=== PATIENT | female | born 1970 | race Caucasian/White ===

== ENCOUNTER 2020-04-19 11:07 | Emergency (ER) | payer OTHER, SELFPAY ==
--- NOTE | 2020-04-19 11:26 | ED.URI ---
HPI - URI/Sore Throat General Chief Complaint: Upper Respiratory Infection Stated Complaint: sinus infection Time Seen by Provider: 04/19/20 11:23 Source: patient and RN notes reviewed Mode of arrival: ambulatory Limitations: no limitations History of Present Illness HPI Narrative: 50-year-old female presents with concern for chronic nasal congestion, sinus pressure, sinus drainage, postnasal drainage, facial pain. Reports symptoms of sinus congestion for several months, reports she had been on amoxicillin however discontinued it because it made her sick to her stomach. She reports she has been using Afrin for several weeks with no relief. She denies fever, cough, shortness of breath, loss of sense of taste or smell. MD elicited complaint: nasal congestion Related Data Allergies Allergy/AdvReac Type Severity Reaction Status Date / Time No Known Allergies Allergy Verified 04/19/20 11:14 Review of Systems Review of Systems: Narrative: CONSTITUTIONAL: Denies malaise, chills, sweats, or fever. EYES: Denies visual changes, redness, or discharge. ENT: Reports rhinorrhea, congestion, sinus pain, otalgia. Denies sore throat. CARDIOVASCULAR: Denies chest pain, palpitations, or edema. RESPIRATORY: Denies cough or dyspnea. GASTROINTESTINAL: Denies abdominal pain, nausea, vomiting, diarrhea SKIN: Denies rash or itching. MUSCULOSKELETAL: Denies myalgia. NEUROLOGIC: Denies headache. All systems reviewed & are unremarkable except as noted in HPI and below PMFSH Social History Social History Gender identity (if verbalized by the patient): Female Comments At time of signature, agree with nursing past medical, surgical, social and family history. There is no relevant family history pertinent to the presenting complaint Exam Narrative: Exam Narrative: GENERAL: Well-appearing, well-nourished, and in no acute distress. HEAD: Normocephalic EYES: PERRLA, conjunctivae clear ENT: Nares clear, turbinates edematous and erythematous, purulent discharge, sinus tenderness. Mucous membranes moist. TM pearly ferraro with dull light reflex bilaterally; no tragal tenderness. Oropharynx not erythematous without lesions. Tonsils not enlarged and without exudate, no drooling, no hoarseness, no trismus, uvula midline. NECK: Supple. No lymphadenopathy CHEST: Clear to auscultation, breath sounds equal. No wheezing, rhonchi, rales, or stridor. No respiratory distress, speaks in full sentences. HEART: Regular rate and rhythm. No murmur heard. SKIN: Warm, dry, no rash. NEURO: Alert and oriented x3. PSYCH: Normal mood and affect Course Course Emergency Course: Patient is aware of diagnosis, understands and agrees to treatment plan. Anticipatory guidance given. Patient agrees to follow-up as directed and is aware of reasons to seek care at the emergency department. Portions of this record may have been created with voice recognition software Vital Signs Vital signs: Reviewed. MDM - URI/Sore Throat MDM Narrative Medical decision making narrative: Differential diagnosis considered: Xiao virus, strep pharyngitis, allergic rhinitis, upper respiratory tract infection, sinusitis, rhinosinusitis, nasopharyngitis. viral pharyngitis, otitis media, otitis externa, pneumonia, bronchitis, viral cough syndrome, viral syndrome, and influenza. Exam findings show no acute concerns or changes; patient is non-toxic appearing and is in no distress. Patient is appropriate for outpatient treatment and follow-up. Critical Care Time Critical Care Time Critical Care Time: No Discharge Plan Discharge Clinical Impression: Acute bacterial sinusitis Patient Disposition: Home, Self-Care Condition: Stable Instructions: Antibiotic Form, Sinusitis (ED) Additional Instructions: Take medications as directed. Discontinue use of Afrin, you may experience rebound congestion. In the future use Afrin for no more than 3 consecutive
== END 2020-04-19 11:37 | disposition home or self-care (01) ==
PROVIDERS: Emergency Provider Nurse Practitioner; PCP Family Medicine
DX: J01.90 Acute sinusitis, unspecified (principal)
CPT/HCPCS: 99213; G0463

== ENCOUNTER → 2020-10-05 15:03 | Outpatient (CLI) | payer OTHER, SELFPAY ==
--- NOTE | ~2020-10-05 | MM_ITS ---
EXAMINATION: MM screening [facility] BI [facility] HISTORY: Screening mammogram TECHNIQUE: Craniocaudal and mediolateral oblique 3-D tomosynthesis images were obtained and synthetic 2-D images were generated. CAD analysis was submitted and interpreted. COMPARISON: 09/14/2017, 10/01/2015, 04/12/2013 BREAST PARENCHYMAL COMPOSITION: There are scattered areas of fibroglandular density. FINDINGS: RIGHT BREAST there is possible architectural distortion the middle third of the central right breast best appreciated 4 cm from the nipple on the craniocaudal view. LEFT BREAST: There is no evidence of suspicious mass, calcification, or architectural distortion to s uggest malignancy. There has been no significant interval change. IMPRESSION: 1. Possible right breast architectural distortion. 2. Additional mammographic views and possible breast ultrasound are recommended. BI-RADS Category 0: Incomplete: Needs additional imaging evaluation. Reviewed, dictated and finalized at location A. IMPRESSION: 1. Possible right breast architectural distortion. 2. Additional mammographic views and possible breast ultrasound are recommended . BI-RADS Category 0: Incomplete: Needs additional imaging evaluation.
== END ==
PROVIDERS: PCP Family Medicine; Visit Provider Obstetrics & Gynecology
DX: Z12.31 Encounter for screening mammogram for malignant neoplasm of breast (principal)
CPT/HCPCS: 77063; 77067

== ENCOUNTER → 2020-11-03 09:21 | Outpatient (CLI) | payer OTHER, SELFPAY ==
--- NOTE | ~2020-11-03 | MM_ITS ---
EXAMINATION: MM diagnostic mammo unilat RT HISTORY: Possible right breast architectural distortion on screening mammogram TECHNIQUE: Additional 3-D tomosynthesis images of the right breast were performed and synthetic 2-D i mages were generated. CAD analysis was submitted and interpreted. COMPARISON: 10/05/2020, 09/14/2017, 10/01/2015 FINDINGS: There is a return to baseline fibroglandular appearance with spot compression of the right breast in the area questioned on screening mammogram. No architectural distortion is identified. IMPRESSION: 1. No mammographic evidence of malignancy. 2. Recommend routine screening mammography in one year. BI-RADS Category 1: Negative Reviewed, dictated and finalized at location A.
== END ==
PROVIDERS: PCP Family Medicine; Visit Provider Obstetrics & Gynecology
DX: R92.8 Other abnormal and inconclusive findings on diagnostic imaging of breast (principal)
CPT/HCPCS: 77065

== ENCOUNTER → 2020-12-17 03:26 | Outpatient (CLI) | payer OTHER, SELFPAY ==
[2020-12-17 20:00] LABS: SARS-CoV-2 RNA PCR Positive
== END ==
PROVIDERS: PCP Family Medicine; Visit Provider Family Medicine
DX: Z20.822 Contact with and (suspected) exposure to COVID-19 (principal); U07.1 COVID-19
CPT/HCPCS: C9803; U0003; U0005

== ENCOUNTER → 2021-12-31 16:38 | Outpatient (CLI) | payer OTHER, SELFPAY ==
--- NOTE | ~2021-12-31 | MM_ITS ---
EXAMINATION: MM screening [facility] HISTORY: Screening mammogram TECHNIQUE: Craniocaudal and mediolateral oblique 3-D tomosynthesis images were obtained and synthetic 2-D images were generated. CAD analysis was submitted and interpreted. COMPARISON: 11/03/2020 diagnostic right mammogram 10/05/2020, 09/10/2017 screening mammogram examinations BREAST PARENCHYMAL COMPOSITION: There are scattered areas of fibroglandular density. FINDINGS: There is no evidence of suspicious mass, calcification, or architectural distortion to sugg est malignancy in either breast. There has been no suspicious interval change. IMPRESSION: 1. No mammographic evidence of malignancy. 2. Recommend routine screening mammography in one year. BI-RADS Category 1: Negative Reviewed, dictated and finalized at location A.
== END ==
PROVIDERS: PCP Family Medicine; Visit Provider Obstetrics & Gynecology
DX: Z12.31 Encounter for screening mammogram for malignant neoplasm of breast (principal)
CPT/HCPCS: 77063; 77067

== ENCOUNTER → 2023-04-12 16:10 | Outpatient (CLI) | payer OTHER, SELFPAY ==
--- NOTE | ~2023-04-12 | MM_ITS ---
EXAMINATION: MM screening [facility] HISTORY: Screening mammogram TECHNIQUE: Craniocaudal and mediolateral oblique 3-D tomosynthesis images were obtained and synthetic 2-D images were generated. CAD analysis was submitted and interpreted. COMPARISON: 12/31/2021 bilateral screening mammogram 11/03/2020 diagnostic right mammogram 10/05/2020, 09/10/2017 bilateral screening mammogram examinations BREAST PARENCHYMAL COMPOSITION: There are scattered areas of fibroglandular density. FINDINGS: There is no evidence of suspicious mass, calcification, or architectural distortion to sugg est malignancy in either breast. There has been no suspicious interval change. IMPRESSION: 1. No mammographic evidence of malignancy. 2. Recommend routine screening mammography in one year. BI-RADS Category 1: Negative Reviewed, dictated and finalized at location A. 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
== END ==
PROVIDERS: PCP Obstetrics & Gynecology; Visit Provider Obstetrics & Gynecology
DX: Z12.31 Encounter for screening mammogram for malignant neoplasm of breast (principal)
CPT/HCPCS: 77063; 77067

== ENCOUNTER 2023-06-12 00:17 | Day surgery (SDC) | payer OTHER, SELFPAY ==
[2023-05-22 11:08] VITALS: BMI 34.4
--- NOTE | 2023-06-09 10:54 | SUR.PREOP ---
Patient called regarding upcoming procedure. Voicemail left regarding appointment times.
--- NOTE | 2023-06-09 13:14 | PM.HPGS ---
History of Present Illness History of Present Illness Consent: Risks, benefits, and alternatives have been discussed and questions answered. Patient agrees to proceed with procedure. Chief complaint: neoplasm screening Narrative: Sallie Yap is a 53 year old female Referred for colon cancer screening. Review of Systems Review of Systems: All systems reviewed & are unremarkable except as noted in HPI and below PMFSH Past Medical History Medical History Abnormal Pap smear of cervix ascus 06/11/2012 Arthritis of both knees Dizziness MARBIN (obstructive sleep apnea) Screening mammogram, encounter for Surgical History Surgical History History of bilateral salpingectomy (10/11/18) Hscope D&C/ Novasure Ablation/ Bilateral Salpingectomy ; Menometrorrhagia dysmenorrhea, undesired fertility History of cholecystectomy (11/22/01) History of dilation and curettage (10/11/18) Hscope D&C/ Novasure Ablation/ Bilateral Salpingectomy ; Menometrorrhagia dysmenorrhea, undesired fertility History of endometrial ablation (10/11/18) Hscope D&C/ Novasure Ablation/ Bilateral Salpingectomy ; Menometrorrhagia dysmenorrhea, undesired fertility Family History Family History Father Hypertension Acute myocardial infarction Mother Myeloma Sibling Skin cancer brother Social History Social History Years smoked: 3 Smoking status: Former smoker Tobacco type: cigarettes Second hand tobacco smoke exposure: No Alcohol intake: current Drinks per week: 3 Alcohol use details: BEERS Substance use: never Substance use type: does not use Lack of Transportation: No Lack of Food: Never True Current Housing: I Have Housing Concerned About Future Housing: No Difficulty Paying Gas/Electric Bills: No Difficulty Paying for Meds: No Currently Unemployed: No Education: Master's Degree or Higher Difficulty w/ Childcare or Family Care: No Living arrangements: with family Additional living arrangements comments: 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/Education: 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 Gender identity (if verbalized by the patient): Female Sexual Orientation (if Verbalized by the Patient): Straight or Heterosexual Spiritual care concerns: No Meds Home Medications and Allergies Home Medications Medication Instructions Recorded Confirmed Type progesterone micronized 200 mg 200 mg PO QHS 10/11/22 06/12/23 History capsule testosterone 50 mg implant pellet 50 mg implant Q3M 10/11/22 06/12/23 History Allergies Allergy/AdvReac Type Severity Reaction Status Date / Time No Known Allergies Allergy Verified 06/12/23 08:00 Exam Resp: Auscultation: clear to auscultation bilaterally Cardio: Rate: regular rate Rhythm: regular rhythm GI: GI Palp: Yes Soft to palpation and No Tenderness to palpation present (GI) Assessment and Plan Assessment and plan (1) Colon cancer screening: Code(s): Z12.11 - Encounter for screening for malignant neoplasm of colon Status: Acute Assessment and Plan: Colonoscopy with possible biopsy or polypectomy or cautery or injection of substances.
[2023-06-12 08:02] VITALS: BP 137/89; PULSE 86; RESP 16; TEMP 36.4; O2SAT 98
--- NOTE | 2023-06-12 08:07 | WPDANESEPPF ---
Anes - Initial Pre Proc Eval Procedure: Operation Date: 06/12/23 09:00 Proposed Procedures p Screening Colonoscopy - Kiko Rojo MD Date/Time: 06/12/23 08:07 Surgeon: Kiko Rojo MD Pre Op Diagnosis: neoplasm screening Patient Data Age: 53 Gender: F Height: 1.65 m Weight: 95.2 kg Last Vital Signs Temp 97.6 F 06/12/23 08:02 Pulse 86 06/12/23 08:02 Resp 16 06/12/23 08:02 BP 137/89 06/12/23 08:02 Pulse Ox 98 06/12/23 08:02 O2 Del Method Room Air 06/12/23 08:02 Allergies Allergy/AdvReac Type Severity Reaction Status Date / Time No Known Allergies Allergy Verified 06/12/23 08:00 Home Medications Medication Instructions Recorded Confirmed Type progesterone micronized 200 mg 200 mg PO QHS 10/11/22 06/12/23 History capsule testosterone 50 mg implant pellet 50 mg implant Q3M 10/11/22 06/12/23 History Patient hx anesthesia problems: none Family hx anesthesia problems: none Results Review: All pre-operative results and documents have been reviewed as part of the pre-operative evaluation. [facility] Past Medical History Medical History (Updated 06/09/23 @ 13:15 by Kiko Rojo MD) Abnormal Pap smear of cervix ascus 06/11/2012 Arthritis of both knees Dizziness MARBIN (obstructive sleep apnea) Screening mammogram, encounter for Surgical History Surgical History History of bilateral salpingectomy (10/11/18) Hscope D&C/ Novasure Ablation/ Bilateral Salpingectomy ; Menometrorrhagia dysmenorrhea, undesired fertility History of cholecystectomy (11/22/01) History of dilation and curettage (10/11/18) Hscope D&C/ Novasure Ablation/ Bilateral Salpingectomy ; Menometrorrhagia dysmenorrhea, undesired fertility History of endometrial ablation (10/11/18) Hscope D&C/ Novasure Ablation/ Bilateral Salpingectomy ; Menometrorrhagia dysmenorrhea, undesired fertility Family History Family History Father Hypertension Acute myocardial infarction Mother Myeloma Sibling Skin cancer brother Social History Social History Years smoked: 3 Smoking status: Former smoker Tobacco type: cigarettes Second hand tobacco smoke exposure: No Alcohol intake: current Drinks per week: 3 Alcohol use details: BEERS Substance use: never Substance use type: does not use Lack of Transportation: No Lack of Food: Never True Current Housing: I Have Housing Concerned About Future Housing: No Difficulty Paying Gas/Electric Bills: No Difficulty Paying for Meds: No Currently Unemployed: No Education: Master's Degree or Higher Difficulty w/ Childcare or Family Care: No Living arrangements: with family Additional living arrangements comments: 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/Education: 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 Gender identity (if verbalized by the patient): Female Sexual Orientation (if Verbalized by the Patient): Straight or Heterosexual Spiritual care concerns: No Anes - Eval Final PreProcedure Day of Procedure 06/12/23 08:07 Patient weight: obese Heart: regular rate and rhythm Lungs: clear to auscultation Airway: Mallampati scale class II Neurological: alert and oriented Last oral intake: >/= 8 hours ASA classification: II Emergent: no Anesthetic plan: proceed Anesthesia type and monitoring: general GIVS and standard monitoring Results Review: All pre-operative results and documents have been reviewed as part of the pre-operative evaluation. Informed Consent: The patient's anesthetic plan and its attendant risks and benefits were discussed with the patient/family/POA. Questions were solicited and answers provided to the satisfaction of the patient/family/POA.
[2023-06-12] MEDS: LACTATED RINGERS 1,000 ML 150 ML IV CONT (08:11)
[2023-06-12 09:09] VITALS: BP 121/81; PULSE 75; RESP 20; O2SAT 96
[2023-06-12 09:19] VITALS: BP 123/75; PULSE 68; RESP 25; O2SAT 97
[2023-06-12 09:29] VITALS: BP 130/83; PULSE 64; RESP 15; O2SAT 100
== END 2023-06-12 09:38 | disposition home or self-care (01) ==
PROVIDERS: PCP Family Medicine; Visit Provider Internal Medicine Gastroenterology
PROC: 0DJD8ZZ Inspection of Lower Intestinal Tract, Via Natural or Artificial Opening Endoscopic (ICD-10-PCS; CPT 45378; principal; 2023-06-12 09:00)
DX: Z12.11 Encounter for screening for malignant neoplasm of colon (principal); D12.8 Benign neoplasm of rectum; K64.8 Other hemorrhoids; G47.33 Obstructive sleep apnea (adult) (pediatric); E66.9 Obesity, unspecified; Z68.34 Body mass index [BMI] 34.0-34.9, adult; Z98.890 Other specified postprocedural states; Z90.49 Acquired absence of other specified parts of digestive tract; Z87.891 Personal history of nicotine dependence; Z82.49 Family history of ischemic heart disease and other diseases of the circulatory system; Z84.0 Family history of diseases of the skin and subcutaneous tissue
CPT/HCPCS: 45381; 45385; 88305; J2704; J7120

== ENCOUNTER 2024-06-17 16:18 | Outpatient (CLI) | payer OTHER, SELFPAY ==
[2024-06-17 17:11] LABS: Albumin Level 4.4 g/dL (3.5-5.1); Estimated Glomerular Filt Rate > 60; Glucose 79 mg/dL (65-110)
--- OUTSIDE RECORDS SUMMARY | 2024-06-17 18:34 | XMS_ITS | Encounter Summary ---
Author Organization [facility] Healthcare Address [address] [place] [address] Care Team Providers Care Sports Attorney Name Role Phone Jesus Ulrich MD Primary Care Provider Kiko Rojo MD Unavailable [phone] Norman Quezada MD Unavailable Encounter Details Date Type Department Care Team (Late st Contact Info) Description 10/25/2023 Documentation [facility] [address] [place] [address] Adeline Cordero, DO [address] [place] [address] Social History Tobacco Use Types Packs/Day Years Used Date Smoking Tobacco: Former Cigarettes Smokeless Tobacco: Never Passive Exposure Comments:qu it 25 years ago AUDIT-C Answer Date Recorded Q1: How often do you have a drink containing alc ohol? 2-4 times a month 10/24/2023 Q2: How many drinks containi ng alcohol do you have on a typical day when you are drinking? 3 or 4 10/24/2023 Q3: How often do you have si x or more drinks on one occasion? Never 10/24/2023 Personal Safety Answer Date Recorded Have you ever been in or are you currently in a harmful physical or emotional relationship or is someone making you feel afraid or unsafe? Denies 10/24/2023 Comments No Sex and Gender Information Value Date Recorded Sex Assigned at Not on file Legal Sex Female 2:04 AM CHEF DE PARTIE Gender Identity Female 06/21/2023 12:25 PM CHEF DE [employer]IE Sexual Orientation Straight 06/21/2023 12 :25 PM CHEF DE [employer]IE documented as of this encounter Plan of Treatment Not on file documented as of this encounter Visit Diagnoses Not on filedocumented in this encounter Care Teams Sports Attorney Relationship Specialty Start Date End Date Jesus Ulrich MD [address] [place] [address] PCP - General Family Medicine 06/21/23 Kiko Rojo MD [address] [place] [address] Referring Physician Gastroenterology 07/25/23 Norman Quezada MD [address] [facility] [id number] [place] [address] Surgeon Colon and Rectal Surgery 07/25/23 documented as of this encounter
--- OUTSIDE RECORDS SUMMARY | 2024-06-17 18:34 | XMS_ITS | Encounter Summary ---
Author Organization [facility] Healthcare Address [address] [place] [address] Care Team Providers Care Portfolio Director Name Role Phone Jesus Ulrich MD Primary Care Provider Kiko Rojo MD Unavailable [phone] Norman Quezada MD Unavailable [phone] Reason for Visit * Reason Onset Date Comments Follow-Up Call 7 Days 10/31/2023 Discharge follow up call placed no answer at this time. Encounter Details Date Type Department Care Team (Late st Contact Info) Description 10/31/2023 Telephone [facility] [address] [place] [address] Netta Holm, RN Follow-Up Call 7 Days (Discharge follow up call placed no answer at this time.) Social History Tobacco Use Types Packs/Day Years [...] on file Legal Sex Female 2:04 AM CLERICAL ADMINISTRATIVE ASSISTANT Gender Identity Female 06/21/2023 12:25 PM CLERICAL ADMINISTRATIVE ASSISTANT Sexual Orientation Straight 06/21/2023 12 :25 PM CLERICAL ADMINISTRATIVE ASSISTANT documented as of this encounter Plan of Treatment Not on file documented as of this encounter Visit Diagnoses Not on filedocumented in this encounter Care Teams Portfolio Director Relationship Specialty Start Date End Date Jesus Ulrich MD [address] [place] [address] PCP - General Family Medicine 06/21/23 Kiko Rojo MD [address] [facility] [address] [place] [address] Referring Physician Gastroenterology 07/25/23 Norman Quezada MD [address] [facility] [phone] [place] [address] Surgeon Colon and Rectal Surgery 07/25/23 documented as of this encounter
--- OUTSIDE RECORDS SUMMARY | 2024-06-17 18:34 | XMS_ITS | Continuity of Care Document ---
Author Organization [facility] Address [address] [place] [address] Phone Care Team Providers Care Refinery Operator Reforming Unit Name Role Phone Fan Leon Unavailable Unavailable Procedures Procedure Date PT Re-evaluation Neuromuscular Re-Ed Manual Therapy Canalith Repositioning Procedure 2017 Neuromuscular Re-Ed Manual Therapy Canalith Repositioning Procedure 2017 Therapeutic Exercise Neuromuscular Re-Ed Manual Therapy Canalith Repositioning Procedure 2017 PT Evaluation Moderate Complexity Therapeutic Exercise Neuromuscular Re-Ed Canalith Repositioning Procedure 2017 Advance Directives Directive Yes / No Effective Date File Name No Information Encounters Encounter Description Practice Location Reason(s) For Visit Diagnoses Date Provider Providers Copied on Encounter [facility], [address], [id number], tel:[phone] [place] Benign paroxysmal vertigo, right earDizziness and giddinessSegment al and somatic dysfunction of cervical region [address] Fan. [address] [facility], [address], [place], [address], [place]. tel: [phone] [facility], [address], [place], [place], [id number], tel:[phone] [place] Benign paroxysmal vertigo, right earDizziness and giddinessSegment al and somatic dysfunction of cervical region May-0 8-201 8 M[address] Fan. [address] [facility], [facility] [address], [place], [facility], . tel: [phone] [place] [address] [facility] [address], [place], [id number], tel:[phone] [place] Benign paroxysmal vertigo, right earDizziness and giddinessSegment al and somatic dysfunction of cervical region May-0 1-201 8 Mujose Chavira. [address] [facility], [facility] [address], [place], [facility], . tel: [phone] [address], [place], [place], [id number], tel:[phone] [place] Benign paroxysmal vertigo, right earDizziness and giddinessSegment al and somatic dysfunction of cervical region Apr-2 7201 [address] Bonilla Chavira. [address] [facility], [facility] [address] [place], [facility], . tel:[phone] Family History Family Member Type Diagnosis Age At Onset No Information Payers Payer name Insurance type Covered green party ID Authornidiaa tipanfilo(s) [facility] CI [id number] Social History Type Description Quantity Date Captured Comments Sex Female Smoking Status No Information Chief Complaint And Reason For Visit No Information Reason For Referral Reason For Referral No Information History Of Present Illness Encounter Date Complaint History Of Prese nt Illness No Information Functional Status Date Functional Assessmen t No Information Instructions Date Instruction Additional Infor mation No Information Assessments Type Assessment Date No Information Patient Care Teams Name Effective Dates (start - stop) Status Members No Information
--- OUTSIDE RECORDS SUMMARY | 2024-06-17 18:34 | XMS_ITS | Referral Summary ---
Author Organization [facility] Address [address] [place] [address] Care Team Providers Care Tree Surgeon Name Role Phone Jesus Ulrich MD Primary Care Provider Kiko Rojo MD Unavailable [phone] Norman Quezada MD Unavailable [phone] Encounters Date Type Department Care Team Description 05/23/2024 Telephone [facility] Gastroenterology [address] [place] [address] Office Building [address], [address] [place] [address] Olivia Vallecillo RN Unsuccessful Phone Call 1 05/02/2024 Telephone [facility] Gastroenterology [address] [place] [address] Office [facility] [address], [address] [place] [address] Olivia Leigh, ALANA Scheduling Testing/Treatment (Flex sig) 03/27/2024 Telephone [facility] Gastroenterology [address] [place] [address] Office Building [address], [address] [place] [address] Olivia Leigh, ALANA GI Preprocedure; Unsuccessful Phone Call 1 from Last 3 Months Allergies No known active allergies Medications progesterone (PROMETRIUM) 200 mg capsule Take 1 capsule (200 mg total) by mouth nightly Active multivitamin tabletIndicatio ns:Vitamin Deficiency Prevention Take 1 tablet by mouth every morning Active cholecalciferol , vitamin D3, 1,000 unit tablet,chewable Indications:Pre vention of Vitamin D Deficiency Take 1 tablet/chew tab by mouth every morning Active ascorbic acid/vit B12/zinc (VITAMIN C-VITAMIN I84-YBPV ORAL) Take 1 tablet by mouth every morning Active polyethylene glycol (MIRALAX) 17 gram packetIndicatio ns:constipation Take 1 packet (17 g total) by mouth daily as needed for constipation 30 packet Active Active Problems Problem Noted Date Diagnosed Date S/P colonoscopy with polypectomy 10/24/2023 Benign colon polyp 10/02/2023 Tubular adenoma of colon 10/02/2023 Rectal polyp 08/04/2023 Sessile colonic polyp 07/25/2023 Social History Tobacco Use Types Packs/Day Years Used Date Smoking Tobacco: Former Cigarettes Smokeless Tobacco: Never Tobacco Cessation:Counseling Given: Not Answered Passive Exposure Comments:quit 25 years ago AUDIT-C Answer Date Recorded [...] on file Legal Sex Female 2:04 AM PIER WORKER Gender Identity Female 06/21/2023 12:25 PM PIER WORKER Sexual Orientation Straight 06/21/2023 12 :25 PM PIER WORKER Last Filed Vital Signs Vital Sign Reading Time Taken Comments Blood Pressure 156/93 10/25/2023 10:40 AM CDT Pulse 76 10/25/2023 10:40 AM CDT Temperature 36.5 C (97.7 F) 10/25/2023 4:10 AM CDT Respiratory Rate 16 10/25/2023 10:40 AM CDT Oxygen Saturation 97% 10/25/2023 10:40 AM CDT Inhaled Oxygen Concentration - - Weight 96 kg (211 lb 9.6 oz) 10/25/2023 4:10 AM CDT Height 165.1 cm (5' 5 ) 10/24/2023 2:40 PM CDT Body Mass Index 35.21 10/24/2023 2:40 PM CDT Plan of Treatment Not on file Insurance CHOICE PLUS [id number] CHOICE PLUS Advance Directives For more information, please contact: [phone] * Full Code (Latest Code Status on File) Date Activated Date Inactivated Comments 10/24/2023 2:52 PM 10/25/2023 6:26 PM * Full Code Date Activated Date Inactivated Comments 10/24/2023 7:36 AM 10/24/2023 2:52 PM Care Teams Tree Surgeon Relationship Specialty Start Date End Date Jesus Ulrich MD [address] [place] [address] PCP - General Family Medicine 06/21/23 Kiko Rojo MD [address] [place] [address] Referring Physician Gastroenterology 07/25/23 Norman Quezada MD [phone] [place] [address] Surgeon Colon and Rectal Surgery 07/25/23
--- OUTSIDE RECORDS SUMMARY | 2024-06-17 18:34 | XMS_ITS | Clinical Summary ---
Author Organization [facility] Address [facility] [place] [address] Care Team Providers Care Cost Control Analyst Name Role Phone Jesus Ulrich MD Primary Care Provider Kiko Rojo MD Unavailable [phone] Norman Quezada MD Unavailable [phone] Allergies No known active allergies Medications progesterone (PROMETRIUM) 200 mg capsule Take 1 capsule (200 mg total) by mouth nightly Active multivitamin tabletIndicatio ns:Vitamin Deficiency Prevention Take 1 tablet by mouth every morning Active cholecalciferol , vitamin D3, 1,000 unit tablet,chewable Indications:Pre vention of Vitamin D Deficiency Take 1 tablet/chew tab by mouth every morning Active ascorbic acid/vit B12/zinc (VITAMIN C-VITAMIN W35-RWXT ORAL) Take 1 tablet by mouth every morning Active polyethylene glycol (MIRALAX) 17 gram packetIndicatio ns:constipation Take 1 packet (17 g total) by mouth daily as needed for constipation 30 packet Active Active Problems Problem Noted Date Diagnosed Date S/P colonoscopy with polypectomy 10/24/2023 Benign colon polyp 10/02/2023 Tubular adenoma of colon 10/02/2023 Rectal polyp 08/04/2023 Sessile colonic polyp 07/25/2023 Encounters Date Type Department Care Team Description 05/23/2024 Telephone [facility] Gastroenterology [facility] Office Building 4, [address] [place] [address] Olivia Vallecillo RN Unsuccessful Phone Call 1 05/02/2024 Telephone [facility] Gastroenterology [address] [place] [address] Medical Office Building 4, [address] [place] [address] Olivia Leigh RN Scheduling Testing/Treatment (Flex sig) 03/27/2024 Telephone [facility] Gastroenterology [address] [place] [address] Office Building [address], [address] [place] [address] Olivia Leigh RN GI Preprocedure; Unsuccessful Phone Call 1 from Last 3 Months Surgical History Surgery Date Site/Laterality Comments ENDOMETRIAL ABLATION 04/24/2017 - 04/23/2018 CHOLECYSTECTOMY 04/24/2003 - 04/23/2004 Family History Medical History Relation Name Comments Heart attack Father Heart attack Maternal Grandfather Relation Name Status Comments Father Maternal Grandfather Social History Tobacco Use Types Packs/Day Years [...] on file Legal Sex Female 2:04 AM SUPERVISOR ASSEMBLY AND PACKING Gender Identity Female 06/21/2023 12:25 PM SUPERVISOR ASSEMBLY AND PACKING Sexual Orientation Straight 06/21/2023 12 :25 PM SUPERVISOR ASSEMBLY AND PACKING Obstetrics History Last Filed Vital Signs Vital Sign Reading [...] 10/24/2023 2:40 PM CDT Plan of Treatment Health Maintenance Due Date Last Done Comments Breast Cancer Screening-Mammogram 1972 Cervical Cancer Screening 1972 Colon Cancer Screening-Colonoscopy 1972 Depression Screening 1972 Hepatitis C Screening 1972 DTaP/Tdap/Td Vaccine (1 - Tdap) 1983 Hepatitis B Screening 1990 Regular Well Visit/Exam 18-64 1990 Zoster Vaccine (1 of 2) 2022 Covid-19 Vaccine ( season) 2023 04/03/2022, 03/23/2021, 07/11/2020, Additional history exists Influenza Vaccine (#1) 2023 2, 03/23/2021, 03/09/2020 Pneumococcal vaccine <65 Aged Out No longer eligible based on patient's age to complete this topic Insurance [facility] CHOICE PLUS [facility] HMO/PPO Address: [facility] [address] [place] [address] [place] [address] [facility] CHOICE PLUS [facility] H[facility]/PPO Address: [facility] [id number] [place] [address] Advance Directives For more information, please contact: [phone] * Full Code (Latest Code Status on File) Date Activated Date Inactivated Comments 10/24/2023 2:52 PM 10/25/2023 6:26 PM * Full Code Date Activated Date Inactivated Comments 10/24/2023 7:36 AM 10/24/2023 2:52 PM Care Teams Cost Control Analyst Relationship Specialty Start Date End Date Jesus Ulrich MD [address] [place] [id number] PCP - General Family Medicine 06/21/23 Kiko Rojo MD [address] [place] [address] Referring Physician Gastroenterology 07/25/23 Norman Quezada MD [phone] [place] [address] Surgeon Colon and Rectal Surgery 07/25/23
== END 2024-06-17 16:19 | disposition home or self-care (01) ==
LOC: ANHLAB 16:19
PROVIDERS: PCP Family Medicine; Visit Provider Orthopaedic Surgery
DX: M17.0 Bilateral primary osteoarthritis of knee (principal)
CPT/HCPCS: 36415; 82040; 82565; 82947

== ENCOUNTER 2024-06-24 12:32 | Outpatient (CLI) | payer OTHER, SELFPAY | END 2024-06-24 12:33 | disposition home or self-care (01) | LOC: ANHCARD 12:35 | PROVIDERS: Visit Provider Orthopaedic Surgery | DX: R94.31 Abnormal electrocardiogram [ECG] [EKG] (principal); M17.0 Bilateral primary osteoarthritis of knee | CPT/HCPCS: 93005 ==

== ENCOUNTER 2024-08-16 13:53 | Outpatient (CLI) | payer OTHER, SELFPAY ==
--- OUTSIDE RECORDS SUMMARY | 2024-08-16 14:00 | XMS_ITS | Clinical Summary ---
Author Organization [facility] Address [facility] [place] [address] Care Team Providers Care Client Business Manager Name Role Phone Jesus Ulrich MD Primary Care Provider Kiko Rojo MD Unavailable [phone] Norman Quezada MD Unavailable [phone] Allergies No known active allergies Medications progesterone (PROMETRIUM) 200 mg capsule Take 1 capsule (200 mg total) by mouth nightly Active multivitamin tabletIndicatio ns:Vitamin Deficiency Prevention Take 1 tablet by mouth every morning Active cholecalciferol , vitamin D3, 1,000 unit tablet,chewable Indications:Pre vention of Vitamin D Deficiency Take 1 tablet/chew tab by mouth every morning Active ascorbic acid/vit B12/zinc (VITAMIN C-VITAMIN O98-MWHQ ORAL) Take 1 tablet by mouth every [...] Type Department Care Team Description 05/23/2024 Telephone [facility] Gastroenterology [facility] Medical Office Building 4, [address] [place] [address] Olivia Vallecillo RN Unsuccessful Phone Call 1 from Last 3 [...] on file Legal Sex Female 2:04 AM LIFE ENRICHMENT SPECIALIST Gender Identity Female 06/21/2023 12:25 PM LIFE ENRICHMENT SPECIALIST Sexual Orientation Straight 06/21/2023 12 :25 PM LIFE ENRICHMENT SPECIALIST Obstetrics History Last Filed Vital Signs Vital [...] (1 of 2) 2022 Covid-19 Vaccine ( - season) 2023 04/03/2022, 03/23/2021, 07/11/2020, Additional history exists Influenza Vaccine (Season Ended) 2024 04/03/2022, 03/23/2021, 03/09/2020 Pneumococcal vaccine <65 Aged Out No longer eligible based on patient's age to complete this topic Insurance [facility] CHOICE PLUS [facility] H[facility]/PPO Address: [id number] [place] [address] [facility] CHOICE PLUS [facility] H[facility]/PPO Address: [id number] [place] [address] Advance Directives For more information, please contact: [phone] * Full Code (Latest Code Status on File) Date Activated Date Inactivated Comments 10/24/2023 2:52 PM 10/25/2023 6:26 PM * Full Code Date Activated Date Inactivated Comments 10/24/2023 7:36 AM 10/24/2023 2:52 PM Care Teams Client Business Manager Relationship Specialty Start Date End Date Jesus Ulrich MD [address] [facility] [address] [place] [address] PCP - General Family Medicine 06/21/23 Kiko Rojo MD [address] [facility] [address] [place] [address] Referring Physician Gastroenterology 07/25/23 Norman Quezada MD [phone] [place] [address] Surgeon Colon and Rectal Surgery 07/25/23
--- OUTSIDE RECORDS SUMMARY | 2024-08-16 14:00 | XMS_ITS | Referral Summary ---
Author Organization [facility] Address [facility] [place] [address] Care Team Providers Care Machine Pie Maker Name Role Phone Jesus Ulrich MD Primary Care Provider Kiko Rojo MD Unavailable Norman Quezada MD Unavailable [phone] Encounters Date Type Department Care Team Description 05/23/2024 Telephone [facility] Gastroenterology [address] [place] [address] Medical Office Building 4, [address] [place] [address] Olivia Vallecillo, ALANA Unsuccessful Phone Call 1 from Last 3 [...] morning Active ascorbic acid/vit B12/zinc (VITAMIN C-VITAMIN H48-KFOF ORAL) Take 1 tablet by mouth every [...] on file Legal Sex Female 2:04 AM VIDEO MACHINES MECHANIC Gender Identity Female 06/21/2023 12:25 PM VIDEO MACHINES MECHANIC Sexual Orientation Straight 06/21/2023 12 :25 PM VIDEO MACHINES MECHANIC Last Filed Vital Signs Vital Sign Reading [...] Plan of Treatment Not on file Insurance [facility] CHOICE PLUS [id number] CHOICE PLUS Advance Directives For more information, please contact: [phone] * Full Code (Latest Code Status on File) Date Activated Date Inactivated Comments 10/24/2023 2:52 PM 10/25/2023 6:26 PM * Full Code Date Activated Date Inactivated Comments 10/24/2023 7:36 AM 10/24/2023 2:52 PM Care Teams Machine Pie Maker Relationship Specialty Start Date End Date Jesus Ulrich MD [address] [facility] [address] [place] [address] PCP - General Family Medicine 06/21/23 Kiko Rojo MD [address] [place] [address] Referring Physician Gastroenterology 07/25/23 Norman Quezada MD [phone] [place] [address] Surgeon Colon and Rectal Surgery 07/25/23
--- OUTSIDE RECORDS SUMMARY | 2024-08-16 14:00 | XMS_ITS | Encounter Summary ---
Author Organization [facility] Healthcare Address [address] [place] [address] Care Team Providers Care Billboard Erector Helper Name Role Phone Jesus Ulrich MD Primary Care Provider Kiko Rojo MD Unavailable [phone] Norman Quezada MD Unavailable [phone] Encounter Details Date Type Department Care Team (Late st Contact Info) Description 10/25/2023 Documentation [facility] 1 [place] [address] Adeline Cordero, DO [address] [place] [address] Social History Tobacco Use Types Packs/Day Years [...] on file Legal Sex Female 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 AM 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 Gender Identity Female 06/21/2023 12:25 PM SALES 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 Sexual Orientation Straight 06/21/2023 12 :25 PM SALES 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 documented as of this encounter Plan of Treatment Not on file documented as of this encounter Visit Diagnoses Not on filedocumented in this encounter Care Teams Billboard Erector Helper Relationship Specialty Start Date End Date Jesus Ulrich MD [address] [place] [address] PCP - General Family Medicine 06/21/23 Kiko Rojo MD [address] [place] [address] Referring Physician Gastroenterology 07/25/23 Norman Quezada MD [address] [facility] [phone] [place] [address] Surgeon Colon and Rectal Surgery 07/25/23 documented as of this encounter
--- OUTSIDE RECORDS SUMMARY | 2024-08-16 14:00 | XMS_ITS | Encounter Summary ---
Author Organization [facility] Healthcare Address [address] [place] [address] Care Team Providers Care Clinical Care Manager Name Role Phone Jesus Ulrich MD Primary Care Provider Kiko Rojo MD Unavailable [phone] Norman Quezada MD Unavailable [phone] Reason for Visit * Reason Onset Date Comments Follow-Up Call 7 Days 10/31/2023 Discharge follow up call placed no answer at this time. Encounter Details Date Type Department Care Team (Late st Contact Info) Description 10/31/2023 Telephone [facility] 1 [place] [address] Netta Holm, RN Follow-Up Call [...] on file Legal Sex Female 2:04 AM COTTON ACREAGE MEASURER Gender Identity Female 06/21/2023 12:25 PM COTTON ACREAGE MEASURER Sexual Orientation Straight 06/21/2023 12 :25 PM COTTON ACREAGE MEASURER documented as of this encounter Plan of Treatment Not on file documented as of this encounter Visit Diagnoses Not on filedocumented in this encounter Care Teams Clinical Care Manager Relationship Specialty Start Date End Date Jesus Ulrich MD [address] [place] [address] PCP - General Family Medicine 06/21/23 Kiko Rojo MD [address] [facility] [address] [place] [address] Referring Physician Gastroenterology 07/25/23 Norman Quezada MD [address] [facility] [phone] [place] [address] Surgeon Colon and Rectal Surgery 07/25/23 documented as of this encounter
[2024-08-16 15:20] LABS: Basophils Absolute Auto 0.1 K/mm3 (0.0-0.1); Basophils Percent Auto 1.2 % (0.2-1.2); Eosinophils Absolute Auto 0.3 K/mm3 (0-0.3); Eosinophils Percent Auto 2.9 % (0-4.4); Hematocrit 40.2 % (37.0-47.0); Hemoglobin 13.2 g/dL (12.0-15.0); Immature Granulocyte Absolute 0.03 K/mm3 (0.00-0.031); Immature Granulocyte Percent A 0.3 % (0-0.5); Lymphocytes Absolute Auto 3.37 K/mm3 (0.9-3.2); Lymphocytes Percent Auto 35.5 % (18.3-44.2); Mean Corpuscular HGB Conc 32.8 g/dl (32-36); Mean Corpuscular Hemoglobin 27.8 pg (26-34); Mean Corpuscular Volume 84.8 fl (80-100); Mean Platelet Volume 9.4 fl (7.4-10.4); Monocytes Absolute Auto 0.6 K/mm3 (0.1-0.6); Monocytes Percent Auto 6.1 % (2.6-8.5); Neutrophils Absolute Auto 5.1 K/mm3 (1.3-6.7); Platelet Count Result 301 k/mm3 (150-375); Red Blood Count 4.74 M/mm3 (4.2-5.4); Red Cell Distribution Width 12.6 % (11.5-14.5); White Blood Count 9.5 K/mm3 (4.5-10.0)
[2024-08-16 15:32] LABS: Urine Cotinine NEGATIVE
[2024-08-16 15:36] LABS: Albumin Level 4.5 g/dL (3.5-5.1); Estimated Glomerular Filt Rate > 60; Glucose 107 mg/dL (65-110)
[2024-08-16 15:59] LABS: Hemoglobin A1C 5.4 % (<5.7)
[2024-08-16 16:30] LABS: MRSA (PCR) NOT DETECTED (NOT DETECTE)
== END 2024-08-16 13:54 | disposition home or self-care (01) ==
LOC: ANHSURGERY 13:55
PROVIDERS: PCP Family Medicine; Visit Provider Orthopaedic Surgery
DX: M17.11 Unilateral primary osteoarthritis, right knee (principal); Z01.812 Encounter for preprocedural laboratory examination
CPT/HCPCS: 80307; 82040; 82565; 82947; 83036; 85025; 87641

== ENCOUNTER 2024-09-10 00:18 | Day surgery (SDC) | payer OTHER, SELFPAY ==
--- NOTE | 2024-08-16 14:08 | PC.NURSE ---
Report to the Outpatient Waiting Room, entrance under the green pavilion located off [facility], at time __8:30am on date ___09/10/24____. Planned Procedure Time: __10:30am . Time changes happen often and if your time is changed the preop area will call you the afternoon before. - You and your visitor will be asked to self-screen and do not enter if you have any COVID symptoms. Please call surgeon if you need to reschedule. - A mask is optional within the hospital at this time. Patients may have clear liquids (water, carbonated beverages, clear teas, apple juice) until 3 hours prior to surgery (7:30am) with a maximum of 20 ounces. - No food from midnight until time of surgery and no smoking, or chewing tobacco (or any form of nicotine). No chewing gum, candy or mints. Take only the following medications with a SIP of water on the morning of surgery: ____THYROID MEDICATION DO NOT STOP ANY OF YOUR OTHER PRESCRIPTION MEDICATIONS PRIOR TO SURGERY EXCEPT THE FOLLOWING Hold all vitamins and supplements for 3 days per anesthesiologist.-LAST DOSE 09/06/24 HOLD ALL NSAIDS(IBUPROFEN) 7 DAYS PRE-OP PER DR PERSON- LAST DOSE 09/02/24 Please no make-up, nail slovenian, hairspray, perfume, deodorant, or body powder the day of surgery. No jewelry (including any body piercings) or valuables the day of surgery, leave them at home. Please take a shower or bath the night before, or the morning of, surgery with an antibacterial soap. Wear comfortable, loose fitting clothing. - Jewelry must be removed prior to entering the operating room. Rings and piercings that are not removed may be cut off. - The hospital will not accept responsibility for valuables. - Please leave all valuables, including medications, at home the day of surgery. If you are going home after surgery, a licensed sprinkler truck driver must drive you home. - NO public transportation without another adult if you receive anesthesia. - We recommend that an adult stay with you for 24 hours following discharge. - We also recommend that you do not drive, make important decision, drink alcoholic beverages, or take any drugs that were not prescribed by your health care provider for at least 24 hours after your discharge time. Follow any additional instructions given to you from your surgeon. Telephone instructions given to ____patient & husband and asked if any additional questions and then verbalized understanding. Patient advised to call surgeon office or pre surgery nurse liaison [phone] if any additional questions.
[2024-08-16 14:20] VITALS: BP 148/78; PULSE 81; RESP 16; TEMP 36.8; O2SAT 96; BMI 36.6
[2024-09-10] VITALS (14 sets, daily range): BP systolic 108–152; BP diastolic 61–96; PULSE 61–89; RESP 12–19; TEMP 36.3; O2SAT 96–100; BMI 36.4
--- NOTE | ~2024-09-10 | XR_ITS ---
EXAMINATION: [id number] DATE: 09/10/2024 11:56 INDICATION: Postoperative evaluation following right knee arthroplasty. TECHNIQUE: Anteroposterior view of the right knee was obtained. COMPARISON: 04/19/2024 FINDINGS: Right total knee arthroplasty which appears well seated on the single provided frontal projection. Th ere is 8 degree varus angulation of the tibia relative to the axis of the tibial tray. No fractures i dentified. Expected postoperative subcutaneous gas. IMPRESSION: 1. Right total knee arthroplasty, negative for postoperative purposes. Reviewed, dictated and finalized at location A.
--- OUTSIDE RECORDS SUMMARY | 2024-09-10 00:20 | XMS_ITS | Encounter Summary ---
Author Organization [facility] Healthcare Address [address] [place] [address] Care Team Providers Care Contract Post Office Clerk Name Role Phone Jesus Ulrich MD Primary Care Provider Kiko Rojo MD Unavailable [phone] Norman Quezada MD Unavailable Encounter Details Date Type Department Care Team (Late st Contact Info) Description 10/25/2023 Documentation [facility] 1 [place] [address] Adeline Cordero, DO [address] [place] [address] Social History Tobacco Use Types Packs/Day Years [...] on file Legal Sex Female 2:04 AM CLINICAL DATA ASSOCIATE Gender Identity Female 06/21/2023 12:25 PM CLINICAL DATA ASSOCIATE Sexual Orientation Straight 06/21/2023 12 :25 PM CLINICAL DATA ASSOCIATE documented as of this encounter Plan of Treatment Not on file documented as of this encounter Visit Diagnoses Not on filedocumented in this encounter Care Teams Contract Post Office Clerk Relationship Specialty Start Date End Date Jesus Ulrich MD [address] [place] [address] PCP - General Family Medicine 06/21/23 Kiko Rojo MD [address] [place] [address] Referring Physician Gastroenterology 07/25/23 Norman Quezada MD [address] [facility] [phone] [place] [address] Surgeon Colon and Rectal Surgery 07/25/23 documented as of this encounter
--- OUTSIDE RECORDS SUMMARY | 2024-09-10 00:20 | XMS_ITS | Encounter Summary ---
Author Organization [facility] Healthcare Address [address] [place] [address] Care Team Providers Care Yarn Twister Name Role Phone Jesus Ulrich MD Primary Care Provider Kiko Rojo MD Unavailable [phone] Norman Quezada MD Unavailable [phone] Reason for Visit * Reason Onset Date Comments Follow-Up Call 7 Days 10/31/2023 Discharge follow up call placed no answer at this time. Encounter Details Date Type Department Care Team (Late st Contact Info) Description 10/31/2023 Telephone [facility] 1 [place] [address] Netta Holm, RN Follow-Up Call [...] on file Legal Sex Female 2:04 AM CULTURAL ANTHROPOLOGY PROFESSOR Gender Identity Female 06/21/2023 12:25 PM CULTURAL ANTHROPOLOGY PROFESSOR Sexual Orientation Straight 06/21/2023 12 :25 PM CULTURAL ANTHROPOLOGY PROFESSOR documented as of this encounter Plan of Treatment Not on file documented as of this encounter Visit Diagnoses Not on filedocumented in this encounter Care Teams Yarn Twister Relationship Specialty Start Date End Date Jesus Ulrich MD [address] [place] [address] PCP - General Family Medicine 06/21/23 Kiko Rojo MD [address] [facility] [address] [place] [address] Referring Physician Gastroenterology 07/25/23 Norman Quezada MD [address] [facility] [phone] [place] [address] Surgeon Colon and Rectal Surgery 07/25/23 documented as of this encounter
--- OUTSIDE RECORDS SUMMARY | 2024-09-10 00:20 | XMS_ITS | Clinical Summary ---
Author Organization [facility] Address [facility] [place] [address] Care Team Providers Care Bpm Developer Name Role Phone Jesus Ulrich MD Primary Care Provider Kiko Rojo MD Unavailable [phone] Norman Quezada MD Unavailable [phone] Allergies No known active allergies Medications progesterone (PROMETRIUM) 200 mg capsule Take 1 capsule (200 mg total) by mouth nightly Active multivitamin tabletIndicatio ns:Vitamin Deficiency Prevention Take 1 tablet by mouth every morning Active cholecalciferol , vitamin D3, 1,000 unit tablet,chewable Indications:Pre vention of Vitamin D Deficiency Take 1 tablet/chew tab by mouth every morning Active ascorbic acid/vit B12/zinc (VITAMIN C-VITAMIN E23-ZSBF ORAL) Take 1 tablet by mouth every morning Active polyethylene glycol (MIRALAX) 17 gram packetIndicatio ns:constipation Take 1 packet (17 g total) by mouth daily as needed for constipation 30 packet Active Active Problems Problem Noted Date Diagnosed Date S/P colonoscopy with polypectomy 10/24/2023 Benign colon polyp 10/02/2023 Tubular adenoma of colon 10/02/2023 Rectal polyp 08/04/2023 Sessile colonic polyp 07/25/2023 Surgical History Surgery Date Site/Laterality Comments ENDOMETRIAL [...] on file Legal Sex Female 2:04 AM SPINNING FRAME FIXER Gender Identity Female 06/21/2023 12:25 PM SPINNING FRAME FIXER Sexual Orientation Straight 06/21/2023 12 :25 PM SPINNING FRAME FIXER Obstetrics History Last Filed Vital Signs Vital [...] patient's age to complete this topic Insurance [facility] CHOICE PLUS Member Subscriber Plan / Payer (Ef fective 2023-Present) Name:Sallie Yap Relation to Subscriber:Self Name:Sallie Yap Payer ID:[id number] (NA) Type:[facility] HMO/PPO Address: [place] [id number] Advance Directives For more information, please contact: [phone] * Full Code (Latest Code Status on File) Date Activated Date Inactivated Comments 10/24/2023 2:52 PM 10/25/2023 6:26 PM * Full Code Date Activated Date Inactivated Comments 10/24/2023 7:36 AM 10/24/2023 2:52 PM Care Teams Bpm Developer Relationship Specialty Start Date End Date Jesus Ulrich MD [address] [place] [address] PCP - General Family Medicine 06/21/23 Kiko Rojo MD [address] [facility] [address] [place] [address] Referring Physician Gastroenterology 07/25/23 Norman Quezada MD [phone] [place] [address] Surgeon Colon and Rectal Surgery 07/25/23
--- OUTSIDE RECORDS SUMMARY | 2024-09-10 00:20 | XMS_ITS | Referral Summary ---
Author Organization [facility] Address Formerly [facility] [place] [address] Care Team Providers Care Curb Setter Name Role Phone Jesus Ulrich MD Primary Care Provider Kiko Rojo MD Unavailable [phone] Norman Quezada MD Unavailable [phone] Allergies No known active allergies Medications progesterone (PROMETRIUM) 200 mg capsule Take 1 capsule (200 mg total) by mouth nightly Active multivitamin tabletIndicatio ns:Vitamin Deficiency Prevention Take 1 tablet by mouth every morning Active cholecalciferol , vitamin D3, 1,000 unit tablet,chewable Indications:Pre vention of Vitamin D Deficiency Take 1 tablet/chew tab by mouth every morning Active ascorbic acid/vit B12/zinc (VITAMIN C-VITAMIN S73-TUNH ORAL) Take 1 tablet by mouth every [...] on file Legal Sex Female 2:04 AM DIRECTOR OF [employer]AL SAL[employer] Gender Identity Female 06/21/2023 12:25 PM DIRECTOR OF [employer] Sexual Orientation Straight 06/21/2023 12 :25 PM DIRECTOR OF [employer] Last Filed Vital Signs Vital Sign Reading [...] Plan of Treatment Not on file Insurance [facility] CHO[facility] PLUS [facility] PLUS Advance Directives For more information, please contact: [phone] * Full Code (Latest Code Status on File) Date Activated Date Inactivated Comments 10/24/2023 2:52 PM 10/25/2023 6:26 PM * Full Code Date Activated Date Inactivated Comments 10/24/2023 7:36 AM 10/24/2023 2:52 PM Care Teams Curb Setter Relationship Specialty Start Date End Date Jesus Ulrich MD [address] [facility] [address] [place] [address] PCP - General Family Medicine 06/21/23 Kiko Rojo MD [address] [facility] [address] [place] [address] Referring Physician Gastroenterology 07/25/23 Norman Quezada MD [address] [facility] [phone] [place] [address] Surgeon Colon and Rectal Surgery 07/25/23
--- OUTSIDE RECORDS SUMMARY | 2024-09-10 00:20 | XMS_ITS | Continuity of Care Document ---
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 [address] [facility], [address], [place], [address], [place]. tel: [phone] [facility], [address] [facility] [address], [place], [place], [id number], tel:[phone] [place] Benign paroxysmal vertigo, right earDizziness and giddinessSegment al and somatic dysfunction of cervical region May-0 8-201 8 Muehl Fan. [address] [facility], [facility] [address], [place], [facility], . tel: [phone] [place] [address] [facility] [address], [place], [id number], tel:[phone] [place] Benign paroxysmal vertigo, right earDizziness and giddinessSegment al and somatic dysfunction of cervical region May-0 1-201 8 Mujose Chavira. [address] [facility], [facility] [address], [place], [facility], . tel: [phone] [address], [place], [place], [id number], tel:[phone] [place] Benign paroxysmal vertigo, right earDizziness and giddinessSegment al and somatic dysfunction of cervical region Apr-2 7201 [address] Bonilla Chavira. [address] [facility], [facility] [address], [place], [facility], . tel:[phone] Family History Family Member Type Diagnosis Age At Onset No Information Payers Payer name Insurance type Covered democrat ID Authornidiaa tipanfilo(s) [facility] CI [id number] Social History Type Description Quantity Date Captured [...]
--- NOTE | 2024-09-10 07:16 | WPDHPUPDATE1 ---
History and Physical Update Update Date/Time: 09/10/24 07:16 History and Physical has been reviewed, including an updated exam of the patient. There are NO changes in the patient's condition. Risks, benefits, and alternatives have been discussed and questions answered. Patient agrees to proceed with procedure.
[2024-09-10] MEDS: ACETAMINOPHEN 500 MG TABLET 1000 MG PO (09:19)
[2024-09-10] MEDS: TRANEXAMIC ACID 1,000MG/ISO100 1,000 MG/100 ML BAG 200 MG IVPB (09:20)
--- NOTE | 2024-09-10 09:46 | P.PNAN_ITS ---
Anes - Initial Pre Proc Eval Procedure: Operation Date: 09/10/24 10:30 Proposed Procedures p Right Total Knee Arthroplasty - Reji Diaz MD Date/Time: 09/10/24 09:46 Surgeon: Reji Diaz MD Pre Op Diagnosis: Prim O A Right Knee Patient Data Age: 54 Gender: F Height: 1.65 m Weight: 99.4 kg Last Vital Signs Temp 36.8 C 08/16/24 14:20 Pulse 81 08/16/24 14:20 Resp 16 08/16/24 14:20 BP 148/78 H 08/16/24 14:20 Pulse Ox 96 08/16/24 14:20 O2 Del Method Room Air 08/16/24 14:20 Allergies Allergy/AdvReac Type Severity Reaction Status Date / Time No Known Allergies Allergy Verified 09/10/24 09:27 Home Medications Medication Instructions Recorded Confirmed Type progesterone micronized 200 mg 200 mg PO QHS 10/11/22 09/10/24 History capsule ADK5 1 tablet PO DAILY 08/16/24 09/10/24 History DIM SGS 1 tablet PO DAILY 08/16/24 09/10/24 History ibuprofen 200 mg tablet (IBU-200) 800 mg PO Q6H PRN pain 08/16/24 09/10/24 History thyroid (pork) 30 mg tablet (DISPATCHER MOTOR VEHICLE 30 mg PO QAM 08/16/24 09/10/24 History Thyroid) aspirin 81 mg tablet,delayed 81 mg PO BID 14 days #28 tabs 09/10/24 Rx release meloxicam 15 mg tablet 15 mg PO DAILY #30 tabs 09/10/24 Rx oxycodone-acetaminophen 5 mg-325 1 - 2 tablet PO Q4-6H PRN pain 7 09/10/24 Rx mg tablet days #30 tabs prednisone 5 mg tablet 5 mg PO DAILY 3 weeks #21 tabs 09/10/24 Rx Laboratory Tests 09/10/24 08:57 Blood Type Pending Antibody Screen Pending Patient hx anesthesia problems: post op nausea/vomiting Family hx anesthesia problems: none Results Review: All pre-operative results and documents have been reviewed as part of the pre- operative evaluation. [facility] Past Medical History Medical History Tubulovillous adenoma of colon MARBIN (obstructive sleep apnea) Screening mammogram, encounter for Dizziness Abnormal Pap smear of cervix ascus 06/11/2012 Arthritis of both knees Surgical History Surgical History History of bilateral salpingectomy (10/11/18) Hscope D&C/ Novasure Ablation/ Bilateral Salpingectomy ; Menometrorrhagia dysmenorrhea, undesired fertility History of endometrial ablation (10/11/18) Hscope D&C/ Novasure Ablation/ Bilateral Salpingectomy ; Menometrorrhagia dysmenorrhea, undesired fertility History of dilation and curettage (10/11/18) Hscope D&C/ Novasure Ablation/ Bilateral Salpingectomy ; Menometrorrhagia dysmenorrhea, undesired fertility History of cholecystectomy (11/22/01) Family History Family History Father Hypertension Acute myocardial infarction Mother Myeloma Sibling Skin cancer brother Social History Social History Smoking packs per day: 0.5 Smoking cigarettes per day: 10.0 Years smoked: 3 Smoking pack-years: 1.50 Smoking status: Former smoker Tobacco type: cigarettes Second hand tobacco smoke exposure: No Smoking end date: 10/22/96 Alcohol intake: current Drinks per week: 3 Alcohol use details: BEERS Substance use: never Substance use type: does not use Do You Feel Safe in your Home?: Yes Lack of Transportation: No Lack of Food: Never True Current Housing: I Have Housing Concerned About Future Housing: No Difficulty Paying Gas/Electric Bills: No Difficulty Paying for Meds: No Currently Unemployed: No Education: Master's Degree or Higher Difficulty w/ Childcare or Family Care: No Living arrangements: with family Additional living arrangements comments: JAYDE Occupation/Education: 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 Gender identity (if verbalized by the patient): Female Sexual Orientation (if Verbalized by the Patient): Straight or Heterosexual Spiritual care concerns: No Anes - Eval Final PreProcedure Day of Procedure 09/10/24 09:46 Patient weight: obese Heart: regular rate and rhythm Lungs: clear to auscultation Airway: Mallampati scale class II Neurological: alert and oriented Last oral intake: >/= 8 hours ASA classification: III Emergent: no Anesthetic plan: proceed Anesthesia type and monitoring: general LMA and standard monitoring Results Review: All pre-operative results and documents have been reviewed as part of the pre- operative evaluation. Informed Consent: The patient's anesthetic plan and its attendant risks and benefits were discussed with the patient/family/POA. Questions were solicited and answers provided to the satisfaction of the patient/family/POA.
[2024-09-10] MEDS: LACTATED RINGERS 1,000 ML 30 ML IV CONT ×2 (09:49→12:52)
[2024-09-10] MEDS: ceFAZolin 2 GM/D5W 50 ML 2 GM/50 ML BAG IVPB (09:51)
[2024-09-10] MEDS: SODIUM CHLORIDE 0.9% IV 37.7 ML, MORPHINE SULFATE INJ (*CRX) 2 MG, ROPivacaine HCL 1% 2... INFILTRATE (10:17)
[2024-09-10] MEDS: fentaNYL CITRATE INJ (*CRX) 100 MCG/2 ML VIAL 25 MCG IV PUSH ×6 (11:56→12:53)
--- NOTE | 2024-09-10 12:22 | P.OP_ITS ---
Procedure Note - Detailed Date of Procedure 09/10/24 Pre-op Diagnosis Right knee degenerative arthritis. Post-op Diagnosis Same Procedure Performed Calipered, kinematically aligned total knee replacement right knee. Surgeon Reji Diaz MD Stave Machine Tender Dina Palacio PA-C Anesthesia General Findings According to the calipered kinematic alignment principles, the knee was balanced by the following verification checks incorporating 6 caliper measurements, using an insert goniometer to select the insert thickness, and adjusting the tibial resection following the kinematic alignment algorithm (see figure 160.10 published in [facility] chapter on kinematic alignment total knee arthroplasty.) The steps verified the femoral and tibial components were kinematically aligned coincident to the patient's pre arthritic joint lines, which closely restored the southern ute tibial compartment forces and ligament laxities without ligament release. The SweetSlapa LifeNexusK DarudarriKA knee, designed specifically for kinematic alignment, fit optimally. Excellent bone quality. No significant releases required. The record of verification checks were documented and scanned into the chart. Distal Femoral Resection: Distal Medial 6 mm(cartilage worn), Distal Lateral 8 mm Target thickness of 8mm Unworn, 6mm Worn (No Cartilage). Posterior Femoral Resection: Posterior Medial 7 mm, Posterior Lateral 7 mm. Target thickness of 7mm Unworn, 5mm Worn (No Cartilage). Description of Procedure General anesthesia was administered. A well-padded tourniquet was placed high on the thigh. The limb was prepped and draped in the usual sterile fashion. Th e limb was exsanguinated and the tourniquet inflated to 300 mmHg. A longitudinal incision was created over the midline of the knee. Sharp dissection was taken through subcutaneous tissues. Electrocautery was used for hemostasis. A trivector approach to the knee joint was performed. The ACL, anterior horns of the menisci, and fat pad were excised, and a subperiosteal dissection was carried along the posterior medial border of the tibia. Starting midway between the top of the notch in the anterior femoral cortex, I drilled a 9 mm diameter hole parallel to the anterior cortex to minimize flexion of the femoral component and promote patella tracking. I verified the existence of a 5-10 mm bone bridge between the posterior aspect of the hole and the anterior limit of the intercondylar notch. An intraosseous positioning bella was inserted 10 cm into the femur perpendicular to the distal joint line and parallel to the anterior cortex. I used a distal femoral referencing guide that compensated 2 mm when the cartilage was worn on the distal medial femoral condyle, and 2 mm when the cartilage was worn on the distal lateral femoral condyle. The basis for setting the distal and posterior femoral resection guide is knowing that the varus and valgus grade II to IV Kellegren-Rogers osteoarthritic knees have negligible bone wear at 0° and 90° and that the mean full-thickness cartilage wear approximates 2 mm. I measured the thickness of distal femoral resections with a caliper to +/- 0.5 mm. The thickness of each resection was adjusted to match the thickness of the respective condyle of the femoral component within 0.5 mm of target after compensating for cartilage wear and kerf. When the distal resection was 1-2 mm too thin, a recut guide was used to adjust the cut. When the distal resection was too thick, a 1 or 2 mm thick washer was fixed to the back of the 4-in-1 chamfer block to halle a corrective gap between the femoral component and distal femur. I set posterior femoral referencing guide at 0° orientation to position the pin holes for the 4 in 1 chamfer block. The sona wing measured the width of the distal femoral resection and selected the size of the 4 in 1 chamfer block and femoral component. The AP sizer confirmed the size. I measured the thickness of the posterior femoral resections with a caliper before making the anterior and chamfer cuts. I adjusted the thicknesses of each resection to match the thickness of the respective condyle of the femoral component within +/-0.5 mm after compensating for cartilage wear and curve. When a posterior resection femoral resection was 1-2 mm too thick or thin a corrective correction was made by shifting or rotating the 4 in 1 chamfer block as needed. The chamfer block was secured in the correct position with compression screws. The anterior and chamfer femoral resections were made. These caliper measurements and corrections verified that the femoral component was set coincident with the patient's pre-arthritic distal and posterior femoral joint lines. I removed all the medial and lateral femoral and tibial osteophytes to restore the pre arthritic length of the medial and lateral collateral ligaments. I yoli AP lines along the major axis of the lateral tibial plateau in between the tibial spines which identified the flexion extension plane of the knee. A conventional extramedullary tibial resection guide was applied to the ankle. An sona wing was placed medially in the saw slot. The varus valgus angle of the tibial resection guide was adjusted until the guide paralleled the proximal tibial articular surface after compensating for cartilage and bone wear. The slope of flexion extension angle of the tibial resection guide was adjusted until the sona wing paralleled the slope of the medial tibia after compensating for wear. The AP axis of the tibial resection guide was adjusted parallel to the two lines. The proximal tibia was resected, partially releasing the insertion of the posterior cruciate ligament. The thickness of the medial and lateral lateral tibial condyle was measured at the base of the tibial spines. I visually verified the slope of the medial border of the resection was parallel to the patient's pre arthritic slope after compensating for cartilage and bone wear. I removed the remnants of the posterior horns of the menisci and posterior osteophytes and cauterized the inferior lateral genicular vessels. The Aquamantys bipolar device was also used to for additional hemostasis. When the knee had a preoperative flexion contracture of 20° or more I teased the capsule off the posterior femur with a curved 3 quarter-inch osteotome. I administered the posterior femoral periosteal injection by delivering 10 cc using a 20 gauge spinal needle at the most medial and 10 cc at the most lateral femoral spur surface which reduced the risk of injury to the posterior neurovascular structures. I followed 6 options in a decision tree to fine tune the varus valgus and posterior slope orientation of the tibial component to restore the patient's pre arthritic tibial joint line and limb alignment. First, I adjusted the varus- valgus orientation of the proximal tibia resection working in 1 degree to 2 degree increments until there was negligible medial and lateral lift off of the distal femoral and proximal tibial resection from the spacer block during a varus valgus laxity assessment in extension. I selected the largest anatomic shape trial tibial base plate that fit within the cortical boundary of the proximal tibial resection. The base plate was best fit parallel to the cortical boundary which set the Internal-external orientation of the anterior to posterior and medial to lateral positions. The best fit method set the AP axis of the tibial base plate and insert parallel to the flexion extension plane of the pre arthritic knee. I pinned the trial tibial base plate, prepared the cruciate slot, and fixed the base plate to the tibia with the cruciate stem. I inserted the trial femoral component. The knee was placed in full extension. Varus valgus laxity is of the knee with trial components were assessed. When asymmetric laxity was observed a 1-2 degree varus or valgus recut guide was used to fine tune the tibial resection until the laxity was 1 degree or less in full extension like the southern ute knee. The following steps determined the optimal insert thickness within +/-1 mm. First I inserted an insert goniometer that matched the thickness of the spacer block. I reduced the patella and then with the knee in maximum extension, I verified the knee hyperextended a few degrees and had negligible varus valgus laxity, like the pre arthritic knee. Next, I measured the external tibial orientation which was the angle the insert goniometer intersected the sagittal line on the medial condyle of the femoral trial component. Then with the knee in 15-30 degrees flexion I verified a 3-4 mm gap in the lateral compartment and no gap in the medial compartment during a 2nd varus valgus laxity test. Next, I placed the knee in 90° of flexion and the foot resting on the operating table and measured the internal tibial orientation. I repeated the steps until I identified the insert thickness that provided the highest external tibia orientation in extension and the highest internal tibial orientation at 90° flexion without anterior lift-off of the insert from the tibial base plate. The insert with this thickness was implanted. I applied a posterior drawer test with the tibia distracted by gravity and verified no posterior subluxation of the tibia relative to the femur. The thickness of the southern ute patella was measured with a caliper. The patella was resected using the oscillating saw. The best fitting anatomic patella button was selected. The fixation holes were drilled. When the patella and patella buttons combined thickness was thicker than the southern ute patella, the patella was recut. The patella remained centered on the trochlea and tracked well throughout the entire arc of flexion and extension. I used pulse lavage to clean the bony surfaces of debris and dried bone. I cemented the tibial, femoral, and patellar components using 1 bag of methylmethacrylate with Gentamycin, then rechecked the stability at full extension, 15-30 degrees, and 90° flexion and verified confucianism of the entire arc of motion of the knee. The circulating nurse confirmed the sponge and needle counts were correct. I used pulse lavage to rinse the joint and wound. The extensor mechanism was closed with interrupted #1 Vicryl suture and #1 running Stratafix suture. The subcutaneous layer was closed with interrupted #1 Vicryl suture followed by 2-0 Stratafix and 3-0 Stratafix. Steri-Strips placed on the skin. Silver impregnated occlusive dressing applied to the wound. A light gauze wrap and [place] bandage were placed. The patient was transferred to the recovery room in stable condition. There were no complications. Implants Medacta GMK spheriKA Femoral component SpheriKA size 4, tibial component size t3i4, vitamin-E flex insert, thickness 11mm, Anatomic patella implant size 2. Estimated Blood Loss 50 Drains No Pathology None sent Complications No immediate complications Condition Stable Disposition PACU [facility] Billing Surgery - Charge Forward: Surgery Billing
[2024-09-10] MEDS: KETOROLAC 15 MG/ML VIAL (*BKC) IV PUSH (12:52)
[2024-09-10] MEDS: ONDANSETRON INJ 4 MG/2 ML VIAL IV PUSH (13:12)
[2024-09-10] MEDS: oxyCODONE HCL (*CRX) 5 MG TAB IR PO (13:30)
[2024-09-10] MEDS: diphenhydrAMINE HCl INJ 50 MG/ML VIAL 25 MG IV PUSH (14:45)
--- NOTE | 2024-09-10 15:14 | SUR.PHASEII ---
Patient safe to d/c per PT and OT standpoint.
--- NOTE | 2024-09-10 15:30 | SUR.PHASEII ---
Cryocuff sent with patient upon discharge. Patient and spouse voiced understanding with use of device.
== END 2024-09-10 15:40 | disposition home or self-care (01) ==
PROVIDERS: PCP Family Medicine; Visit Provider Orthopaedic Surgery
PROC: (CPT 27447; principal; 2024-09-10 10:30)
DX: M17.10 Unilateral primary osteoarthritis, unspecified knee (principal); Z87.891 Personal history of nicotine dependence; E66.9 Obesity, unspecified; Z68.36 Body mass index [BMI] 36.0-36.9, adult
CPT/HCPCS: 27447; 36415; 73560; 86850; 86900; 86901; 97110; 97161; 97165; C1776; A9270; C1713; J0171; J0690; J1100; J1200; J1885; J2250; J2270; J2405; J2704; J2795; J3010; J7120